=== PATIENT | female | born 1975 | race American Indian/Alaskan Native ===

== ENCOUNTER 2017-09-24 12:44 | Outpatient (CLI) | payer OTHER ==
--- NOTE | 2017-09-24 13:47 | XRay Report ---
Bilateral knees: Bilateral knee pain. Standing views are obtained. There is good alignment of both knees. Periarticular spurs are identified involving both medial and lateral compartments of both knees. Articular spurs are identified at the patellofemoral junction superiorly in both knees. The medial joint space is narrowed bilaterally. The articular surfaces are smooth bilaterally. No swelling and no effusion identified. Impression: Bilateral degenerative knee joint changes with bilateral medial compartment narrowing.
== END 2017-09-24 12:45 | disposition home or self-care (01) ==
LOC: SPVIMAG 12:44
PROVIDERS: ATTEND Orthopaedic Surgery
DX: M17.0 Bilateral primary osteoarthritis of knee (principal); M25.861 Other specified joint disorders, right knee; M25.862 Other specified joint disorders, left knee